=== PATIENT | female | born 1980 | race African-American/Black ===

== ENCOUNTER 2020-08-23 07:06 | Emergency (ER) | payer SELFPAY ==
--- NOTE | 2020-08-23 07:23 | PHYS DOC ---
Adult General HPI HPI Patient is a 40-year-old female who presents via EMS requesting psychiatric evaluation. She has no known medical issues. She reports being in complicated relationship with a female partner who is dating another male. She is having a lot of relationship discord at this time. On arrival to our facility, patient unwilling to cooperate with our staff, will not get into her room or keep mask on. She denies any self-harm and/or suicidal ideation at this time she "just wants a mental evaluation and to be safe". She is AAO x3. Patient keeps stating " I gave her everything and she do not care, I did 20 years and you will do not even care". Review of Systems Review of Systems Unable to assess Physical Exam Physical Exam Constitutional: Well developed, well nourished HENT: Normocephalic, atraumatic, bilateral external ears normal, oropharynx moist, no oral exudates, nose normal. Eyes: PERRLA, EOMI, conjunctiva normal, no discharge. Lungs & Thorax: No respiratory distress, bilateral chest rise Skin: Warm, dry, no erythema, no rash. Back: No tenderness, no CVA tenderness. Extremities: No tenderness, no cyanosis, no clubbing, ROM intact, no edema. Neurologic: Alert and oriented X 3 Psychologic: Agitated EKG EKG [] Radiology/Procedures Radiology/Procedures [] Heart Score Risk Factors: Risk Factors: DM, Current or recent (<one month) smoker, HTN, HLP, family history of CAD, obesity. Risk Scores: Risk Factors: DM, Current or recent (<one month) smoker, HTN, HLP, family history of CAD, obesity. Course & Med Decision Making Course & Med Decision Making Ambulatory patient from EMS unwilling to cooperate with our medical staff, would not participate in medical intake screening/vitals, would not get into emergency department room, would not keep her mask on Efforts were made by numerous healthcare providers in our department to de- escalate patient and empathized with her situation. Nonetheless she continued to be agitated about her current relationship discord. The patient is AAOx3, exhibits no alcohol or drug intoxication to a point that would impair ability to delineate a choice, no self harm and/or suicidal ideation noted Patient continuing to refuse care, our ER security came and attempts to resolve situation but they were unsuccessful. Local PD eventually called to remove patient from our premises. Throughout entire stay, patient was respectfully asked to return to room so we could perform a medical evaluation and subsequent mental health evaluation for which she is seeking but continued to refuse. Ultimately, the patient understands they are welcome to return to the hospital at any time to receive the recommended care or any other care at any time, regardless of their ability to pay for such care. Patient was removed from our premises by PD [place] Disclaimer Sherri Disclaimer This electronic medical record was generated, in whole or in part, using a voice recognition dictation system. Departure Departure: Impression: Primary Impression: Malingering Disposition: 07 AMA/ELOPED/LWBS Condition: STABLE Referrals: PCP,UNKNOWN (PCP) PEPE CHAN DO Aug 23, 2020 07:23
== END 2020-08-23 07:44 | disposition left against medical advice (07) ==
LOC: ER 07:06
DX: R45.851 Suicidal ideations (principal); Z76.5 Malingerer [conscious simulation]
CPT/HCPCS: 99283